=== PATIENT | female | born 1965 | race African-American/Black ===

== ENCOUNTER → 2019-12-12 | Day surgery (SDC) | payer OTHER ==
[~2019-12-12] MED LIST: CYMBALTA20 MG PO; FENTANYL CITRATE/PF 100MCG/2 ML INJ ONE; HYOSCYAMINE 0.125 MG TAB ONE; MIDAZOLAM HCL 2 MG/2 ML VIAL ONE; PROPOFOL IV EMULSION 10 MG/ML 50 ML VIAL ONE; SEROQUEL25 MG PO
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
[2019-12-12 13:40] VITALS: BP 136/81
--- NOTE | 2019-12-12 20:08 | Operative Report ---
DATE OF PROCEDURE: 12/12/2019 SURGEON: Bulmaro Hightower MD PROCEDURE: Colonoscopy with polypectomy. INDICATIONS FOR COLONOSCOPY: Surveillance colonoscopy, personal history of colon polyps. MEDICATIONS: The patient was done under MAC, please see anesthesiologist note. PROCEDURE IN DETAIL: With the patient in the left lateral decubitus position, a flexible fiberoptic Olympus colonoscope was inserted into the rectum with ease and advanced all the way to the cecum. It was then withdrawn slowly, mucosa overlying the cecum appeared to be within normal limits. One polyp was hot snared from the ascending colon. The transverse colon appeared to be within normal limits. One polyp was hot biopsied from the descending colon. Diverticular disease was noted to involve the descending and the sigmoid colon. Six polyps were removed from the sigmoid colon. Nine polyps were hot biopsied from the rectum. The scope was then retroflexed into the distal rectum and small internal hemorrhoids were noted, none of which was actively bleeding. The scope was then straightened out, it was subsequently withdrawn, and the patient tolerated the procedure well. IMPRESSION: 1. Ascending colon polyp, removed per snare electrocautery. 2. Descending colon polyp, hot biopsied. 3. Diverticulosis. 4. Sigmoid colon polyps x6, hot biopsied. 5. Rectal polyps x9, hot biopsied. 6. Internal hemorrhoids, none actively bleeding. PLAN: Follow up histology. Initiate high-fiber, low-fat diet. Initiate high-fiber supplement. The patient might benefit from a followup colonoscopy in 1 to 2 years. A total of 17 polyps were removed. Bulmaro Hightower MD [facility] [place]/SIRENA /[id number] cc: Tim Alvarado MD
== END | disposition home or self-care (01) ==
LOC: OR 08:29
PROVIDERS: ATTEND Internal Medicine Gastroenterology
DX: K59.09 Other constipation (principal); D12.2 Benign neoplasm of ascending colon; D12.4 Benign neoplasm of descending colon; K62.1 Rectal polyp; K57.30 Diverticulosis of large intestine without perforation or abscess without bleeding; K64.8 Other hemorrhoids; R03.0 Elevated blood-pressure reading, without diagnosis of hypertension; F31.9 Bipolar disorder, unspecified; Z88.6 Allergy status to analgesic agent; Z01.810 Encounter for preprocedural cardiovascular examination; Z68.28 Body mass index [BMI] 28.0-28.9, adult
CPT/HCPCS: 45384; 45385; 93005; J2250; J2704; J3010; 45378